=== PATIENT | female | born 1950 | race Caucasian/White ===

== ENCOUNTER 2019-08-03 23:40 | Emergency (ER) | payer OTHER ==
[~2019-08-03] VITALS: Ht 167.6 cm; Wt 95.3 kg
[2019-08-04 00:13] VITALS: Ht 167.6 cm; Wt 95.3 kg
[2019-08-04 01:36] VITALS: BP 117/55
== END 2019-08-04 01:36 | disposition home or self-care (01) ==
LOC: ED 23:40
DX: S52.501A Unspecified fracture of the lower end of right radius, initial encounter for closed fracture (principal); I10 Essential (primary) hypertension; W18.30XA Fall on same level, unspecified, initial encounter; Y93.89 Activity, other specified; Y92.89 Other specified places as the place of occurrence of the external cause; Y99.8 Other external cause status

== ENCOUNTER 2020-02-28 23:51 | Inpatient (IN) | payer OTHER ==
[~2020-02-28] VITALS: Ht 162.6 cm; Wt 94.4 kg
[2020-02-29] VITALS (7 sets, daily range): BP systolic 118–143; BP diastolic 51–61
[2020-02-29 00:51] LABS: CALCIUM 9.3 mg/dL (8.5-10.1); CREATININE SERUM 1.2 mg/dL (0.6-1.0); POTASSIUM SERUM 3.2 mmol/L (3.5-5.1)
[2020-02-29 00:55] LABS: ALBUMIN 3.6 g/dL (3.4-5.0); BILIRUBIN TOTAL 0.49 mg/dL (0.20-1.00); TOTAL PROTEIN, SERUM 7.7 g/dL (6.4-8.2)
[2020-02-29 00:56] LABS: PLATELET COUNT 308 x10^3mcL (130-400); RED CELL DISTRIBUTION WIDTH 14.5 % (11.5-14.5)
[2020-02-29 01:03] LABS: MONOCYTE 3 % (0-7); SEGMENTED NEUTROPHILS 86 % (37-75)
[2020-02-29 01:05] LABS: PLATELET MORPHOLOGY PLATELETS NORMAL; rbc morphology (normal/abnorm) NORMAL (NORMAL)
[2020-02-29] MEDS ORDERED: TOPROL XL25 MG PO (03:04)
[2020-02-29] MEDS ORDERED: ZIAC1 TA1 PO (03:04)
[2020-02-29] MEDS ORDERED: ZIA10 PO (03:09)
[2020-02-29] MEDS ORDERED: ASPIR 8181 MG PO (03:27)
[2020-02-29] MEDS ORDERED: ISOSORBIDE DINI30 M2 PO (03:29)
[2020-02-29] MEDS ORDERED: CAPTOPRIL25 MG PO (03:31)
[2020-02-29 03:41] LABS: microscopic required? NO
[2020-02-29 03:49] LABS: UA SPECIFIC GRAVITY 1.025 (1.005-1.035); urine erythrocyte NEGATIVE (NEGATIVE)
[2020-02-29 04:15] LABS: AMPHETAMINE QUAL UR NONE DETECTED (See below)
[2020-02-29 04:19] LABS: CHOLESTEROL/HDL RATIO 2.8; MAGNESIUM 1.7 mg/dL (1.8-2.4); PHOSPHOROUS 3.9 mg/dL (2.5-4.9)
[2020-02-29 04:27] LABS: T3 TOTAL 1.24 ng/mL
[2020-02-29 04:44] LABS: FREE T4 0.91 ng/dL (0.76-1.46); T4(THYROXINE) 8.2 ug/dL (4.7-13.3)
[2020-02-29 16:27] LABS: CARBON DIOXIDE 31.2 mmol/L (21-32); POTASSIUM SERUM 3.5 mmol/L (3.5-5.1)
[2020-03-01 05:20] VITALS: BP 142/64
[2020-03-01 07:16] LABS: PLATELET COUNT 238 x10^3mcL (130-400)
[2020-03-01 07:25] LABS: CALCIUM 8.7 mg/dL (8.5-10.1); CARBON DIOXIDE 26.6 mmol/L (21-32); CHLORIDE SERUM 105 mmol/L (98-107); CREATININE SERUM 0.8 mg/dL (0.6-1.0); GFR1 > 60 mL/min; GLUCOSE SERUM 99 mg/dL (74-106); SODIUM SERUM 142 mmol/L (136-145)
[2020-03-01 08:00] VITALS: BP 125/60
[2020-03-01 08:10] LABS: BASOPHIL % 0 % (0-2); RED CELL DISTRIBUTION WIDTH 15.5 % (11.5-14.5)
[2020-03-01] MEDS ORDERED: ATORVASTATIN CA40 M1 PO (08:35)
[2020-03-01] MEDS ORDERED: TOPROL XL25 MG PO (12:07)
[2020-03-01 12:17] VITALS: BP 130/53
[2020-03-01 12:24] VITALS: BP 117/84
[2020-03-01 13:02] VITALS: BP 117/84
== END 2020-03-01 15:19 | disposition home or self-care (01) | DRG 391 ==
LOC: ED 23:51 → DU 02-29 02:39
PROVIDERS: Emergency Medicine; ADMIT Internal Medicine; ATTEND Internal Medicine
DX: K52.9 Noninfective gastroenteritis and colitis, unspecified (principal); N17.0 Acute kidney failure with tubular necrosis; Z20.828 Contact with and (suspected) exposure to other viral communicable diseases; I10 Essential (primary) hypertension; D72.829 Elevated white blood cell count, unspecified; M19.90 Unspecified osteoarthritis, unspecified site; M79.7 Fibromyalgia; E78.5 Hyperlipidemia, unspecified; G89.29 Other chronic pain; M54.9 Dorsalgia, unspecified; E87.6 Hypokalemia; M10.9 Gout, unspecified; Z96.611 Presence of right artificial shoulder joint; Z79.899 Other long term (current) drug therapy; Z79.82 Long term (current) use of aspirin; Z56.0 Unemployment, unspecified
CPT/HCPCS: 83880; 84439; 85378; G0378; J2405; J7030